=== PATIENT | male | born 1970 | race Caucasian/White ===

== ENCOUNTER 2017-08-03 09:23 | Inpatient (IN) | payer BC ==
[~2017-08-03] VITALS: Ht 180.3 cm; Wt 111.0 kg
[2017-08-03 09:53] LABS: BASOPHIL COUNT 0.1 K/uL (0-0.1); EOSINOPHIL (%) 2.2 % (0-5); EOSINOPHIL COUNT 0.2 K/uL (0-0.3); HEMATOCRIT 45.5 % (38.0-50.0); IMMATURE GRANULOCYTE (%) 0.5 % (0.0-0.7); INSTRUMENT ABS NEUTROPHIL CT 4.6 K/uL; LYMPHOCYTE COUNT 2.9 K/uL (1.0-2.8); MCH 29.9 PG (29.0-34.0); MCHC 34.9 G/DL (30.0-36.0); MCV 85.5 FL (86-99); MEAN PLAT.VOLUME 9.1 uM^3 (9.0-12.4); MONOCYTE COUNT 0.6 K/uL (0-0.8); NEUTROPHIL (%) 54.9 % (45-76); NEUTROPHIL COUNT 4.6 K/uL (1.8-6.4); PLATELET COUNT 342 K/uL (156-360); RBC DIS.WIDTH-CV 11.9 % (11.8-14.6); RBC DIS.WIDTH-SD 36.6 % (39-53); RED BLOOD COUNT 5.32 M/uL (4.00-5.50); WHITE BLOOD COUNT 8.3 K/uL (4.1-10.2)
[2017-08-03 09:58] LABS: PROTHROMBIN TIME 11.3 SEC (10.2-12.9)
[2017-08-03 10:00] LABS: D-DIMER ELISA < 150.00 ng/mLDDU (<230)
[2017-08-03 10:01] LABS: PTT 31.2 SEC (25-37)
[2017-08-03 10:02] LABS: CHLORIDE 107 mEq/L (99-109); POTASSIUM 4.3 mEq/L (3.7-5.4); SODIUM 141 mEq/L (136-147)
[2017-08-03 10:04] LABS: GLUCOSE 121 mg/dL (70-99)
[2017-08-03 10:05] LABS: ANION GAP 11 MEQ/L (2-14)
[2017-08-03 10:08] LABS: GFR ESTIMATE (CALCULATED) > 59 mL/min/
[2017-08-03 10:09] LABS: UREA NITROGEN (BUN) 13 mg/dL (9-23)
[2017-08-03 10:13] LABS: TROP-I INTERPRETATION NEGATIVE; TROPONIN-I < 0.01 ng/mL (0.0-0.30)
[2017-08-03] MEDS ORDERED: PRAVASTATIN SOD40 MG PO (11:54)
[2017-08-03] MEDS ORDERED: MUCINEX600 MG PO (11:54)
[2017-08-03] MEDS ORDERED: ROBITUSSIN100 MG/5 M PO (11:55)
[2017-08-03] MEDS ORDERED: MULTIVITAMIN1 EAC2 PO (12:02)
[2017-08-03 13:37] VITALS: BP 138/72
[2017-08-03 19:30] VITALS: BP 117/75
[2017-08-03 20:48] LABS: TROP-I INTERPRETATION NEGATIVE; TROPONIN-I 0.03 ng/mL (0.0-0.30)
[2017-08-03 23:00] VITALS: BP 107/70
[2017-08-04 04:45] VITALS: BP 104/69
[2017-08-04 04:56] LABS: TROP-I INTERPRETATION NEGATIVE; TROPONIN-I 0.02 ng/mL (0.0-0.30)
[2017-08-04 05:38] LABS: HEMATOCRIT 40.7 % (38.0-50.0); MCH 29.4 PG (29.0-34.0); MCHC 33.4 G/DL (30.0-36.0); MCV 87.9 FL (86-99); MEAN PLAT.VOLUME 9.2 uM^3 (9.0-12.4); PLATELET COUNT 308 K/uL (156-360); RBC DIS.WIDTH-SD 38.7 % (39-53); RED BLOOD COUNT 4.63 M/uL (4.00-5.50); WHITE BLOOD COUNT 8.8 K/uL (4.1-10.2)
[2017-08-04 06:02] LABS: ALKALINE PHOSPHATASE 49 IU/L (3-129); ANION GAP 9 MEQ/L (2-14); CHLORIDE 103 MEQ/L (99-109); GFR ESTIMATE (CALCULATED) > 59 mL/min/; GLUCOSE 99 mg/dL (70-99); POTASSIUM 4.5 MEQ/L (3.7-5.4); SAMPLE HEMOLYSIS CHECK 0; SAMPLE ICTERIC CHECK 0; SAMPLE LIPEMIA CHECK 0; SODIUM 140 MEQ/L (136-147); TOTAL BILIRUBIN 0.6 MG/DL (0.0-1.0); UREA NITROGEN (BUN) 13 mg/dL (9-23)
[2017-08-04 07:28] VITALS: BP 117/63
== END 2017-08-04 08:31 | disposition home or self-care (01) | DRG 310 ==
LOC: EME 09:23 → EDOF 11:26 → 4EAST 11:26 → ENRESERV 11:41 → 4EAST 13:02
PROVIDERS: Emergency Medicine; Pediatrics
PROC: 5A09357 Assistance with Respiratory Ventilation, Less than 24 Consecutive Hours, Continuous Positive Airway Pressure (ICD-10-PCS; principal; 2017-08-03)
DX: I48.0 Paroxysmal atrial fibrillation (principal); G47.33 Obstructive sleep apnea (adult) (pediatric); I10 Essential (primary) hypertension; M54.9 Dorsalgia, unspecified; E78.5 Hyperlipidemia, unspecified; F41.9 Anxiety disorder, unspecified; M25.50 Pain in unspecified joint; E66.9 Obesity, unspecified; Z68.33 Body mass index [BMI] 33.0-33.9, adult
CPT/HCPCS: 71010; 80048; 80053; 84443; 84484; 85025; 85027; 85379; 85610; 85730; 93005; 99281; 99285; J1160; J1650; J7030; J7050